=== PATIENT | male | born 1980 | race Caucasian/White ===

== ENCOUNTER 2018-05-09 12:51 | Day surgery (SDC) | payer OTHER ==
[2018-05-09 13:08] VITALS: BMI 27.9
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
[2018-05-09] MEDS ORDERED: AMPICILLIN NA/SULBACTAM NA 3 GM in SODIUM CHLORIDE 100 ML IVPB ONE ×3 (13:46→19:52)
[2018-05-09] MEDS ORDERED: AMPICILLIN NA/SULBACTAM NA 3 GM VIAL ONE (14:35)
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
[2018-05-09 15:26] LABS: BASO % 0.5 % (0-2.0); EOS % 0.4 % (0-4.5); HEMATOCRIT 47.5 % (35.4-49); HEMOGLOBIN 15.7 GM/dl (11.7-16.9); LYMPH % 15.6 % (8-40); MCH 30.5 pg (25.7-33.7); MCHC 33.1 g/dl (32.0-35.9); MEAN CELL VOLUME 92.2 fl (80-96); MEAN PLT VOLUME 9.5 fl (7.5-11.1); MONO % 7.6 % (3.8-10.2); NEUT % 75.9 % (42.8-82.8); PLATELET COUNT 193 K/MM3 (134-434); RBC 5.16 M/mm3 (4.00-5.60); RDW 12.6 % (11.9-15.9); WHITE BLOOD COUNT 11.8 K/mm3 (4.0-10.8)
[2018-05-09 15:31] LABS: ALK PHOS 60 U/L (32-92); ANION GAP 7 MMOL/L (8-16); BILIRUBIN,TOTAL 1.3 mg/dl (0.2-1.0); BLOOD UREA NITROGEN 11 mg/dl (7-18); CHLORIDE 102 mmol/L (98-107); CO2 27 mmol/L (22-28); CREATININE 1.2 mg/dl (0.6-1.3); GLUCOSE,RANDOM 92 mg/dl (74-106); POTASSIUM 4.3 mmol/L (3.5-5.1); SGOT/AST 21 U/L (10-42); SGPT/ALT 18 U/L (10-40); SODIUM 136 mmol/L (136-145)
[2018-05-09 15:41] LABS: INR 1.11 (0.82-1.09); PROTHROMBIN TIME (PATIENT) 12.4 SEC (10.2-13.0)
[2018-05-09] MEDS ORDERED: ONDANSETRON 4 MG/2 ML VIAL IVPUSH PRN ×3 (15:41→19:52)
[2018-05-09] MEDS ORDERED: morphine SULFATE 4 MG/ML VIAL IVPUSH PRN ×2 (15:41→19:52)
[2018-05-09] MEDS ORDERED: LACTATED RINGERS SOLUTION 1,000 ML IV SCH ×3 (15:45→19:52)
--- NOTE | 2018-05-09 15:52 | OP ---
Operative Note - Note: Operative Date: 05/09/18 Pre-Operative Diagnosis: open fracture right fifth proximal phalanx Operation: open reduction and internal fixation of right fifth proximal phalanx fracture, repair of extensor tendon laceration Implants: navarro wire 0.45 X2 Post-Operative Diagnosis: Same as Pre-op Surgeon: Baudilio Vega Anesthesiologist/BUSINESS ETHICS PROFESSOR: Nomi Chang Anesthesia: General, Local (lidocaine 1% and marcaine 0.5% 20ml) Specimens Removed: none Estimated Blood Loss (mls): 25 Instrument used (Debridements only): scalpel and Fluid Volume Replaced (mls): 1,000 Operative Report Dictated: Yes
--- NOTE | 2018-05-09 15:56 | DS ---
Physical Examination Vital Signs: Vital Signs Temperature 98.4 F 05/09/18 12:53 Pulse Rate 84 05/09/18 12:53 Respiratory Rate 20 05/09/18 12:53 Blood Pressure 149/97 05/09/18 12:53 O2 Sat by Pulse Oximetry (%) 100 05/09/18 12:53 Vital Signs Period Temp Pulse Resp BP Sys/Nolen Pulse Ox Last 24 Hr 98.4 F 84 20 149/97 100 Findings/Remarks: stable post operatively, tolerating diet, voiding pain is adequately controlled Constitutional: Yes: Well Nourished, No Distress, Calm Eyes: Yes: Conjunctiva Clear, EOM Intact HENT: Yes: Atraumatic, Normocephalic Neck: Yes: Supple, Trachea Midline Cardiovascular: Yes: Regular Rate and Rhythm, S1, S2 Respiratory: Yes: Regular, CTA Bilaterally Gastrointestinal: Yes: Normal Bowel Sounds, Soft ...Rectal Exam: Yes: Deferred Renal/: Yes: CVA Tenderness - Left, CVA Tenderness - Right Musculoskeletal: No: Muscle Pain, Muscle Weakness Extremities: No: Cool, Cyanosis Edema: Yes Edema: RUE: 1+ Peripheral Pulses WNL: Yes Peripheral Pulses: Left Radial: 2+, Right Radial: 2+, Left Doralis Pedis: 2+, Right Dorsalis Pedis: 2+ Wound/Incision: Yes: Clean/Dry, Well Approximated, Sutures Intact, Dressing Dry and Intact, Other (ulnar gutter splint) Neurological: Yes: Alert, Oriented Psychiatric: Yes: Alert, Oriented Labs: CBC, BMP 05/09/18 14:45 05/09/18 14:45 Discharge Summary Reason For Visit: RIGHT HAND CUT Current Active Problems Fracture of phalanx, finger, open (Acute) Fracture of proximal phalanx of digit of right hand (Acute) Hand pain, right (Acute) Laceration of hand with infection (Acute) Procedures: Principal: open reduction and internal fixation of right small finger proximal phalanx open fracture Hospital Course: admitted for and urgent surgery. uneventful procedure. stable for discharge home on antibiotics with follow-up Condition: Improved - Instructions Diet, Activity, Other Instructions: Postoperative instructions: You had a fixation of right small finger fracture on 05/09/[address] Baudilio Vega of [facility]. Activity: Resume your usual activities gradually, but no heavy exertion or lifting more than 10-15 pounds for 4-6 weeks. Please keep right hand splint clean and dry until followup. ELEVATE YOUR ARM TO KEEP SWELLING DOWN. Eat lightly at first, but advance to your usual diet as tolerated. Pain: For pain, you may use and alternate Tylenol (acetaminophen) 1-2 pills and/ or ibuprofen 200 mg (1-3 pills) every 6 hours each as needed; this means that you can take one OR the other at 3-hour intervals. If you are prescribed a Tylenol/narcotic combination for severe pain, use it instead of plain Tylenol as needed and switch back when your pain starts decreasing. Do not take more than 4000 mg of acetaminophen in a day. Take medications as prescribed or indicated on the labeling. Follow-up: Call Dr. Vega' office at [phone] to make your postop appointment (Thursday in approximately 2 weeks after surgery as advised). Clinic is held in the [facility] on the first floor of [facility]. Call the office if you have: * increasing pain not responsive to pain medication * fever of 101F or higher * unusual or increasing bleeding or drainage from wounds * increasing redness or swelling at wound sites Also, see your primary medical doctor within 1-2 weeks. Referrals: Mo Choi MD [Primary Care Provider] - - Home Medications Comprehensive Discharge Medication List: Ambulatory Orders Cephalexin Monohydrate [Keflex -] 500 mg PO Q6H 7 Days #28 capsule 05/09/18 Oxycodone HCl/Acetaminophen [Percocet 5/325 -] 1 tab PO Q6H #40 tab MDD 5 Sulfamethoxazole/Trimethoprim [Bactrim Ds -] 1 tab PO BID #14 tablet 05/09/18
[2018-05-09] MEDS ORDERED: MIDAZOLAM HCL 2 MG/2 ML SINGLE DOSE VIAL ONE ×2 (16:08)
[2018-05-09] MEDS ORDERED: BUPIVACAINE HCL/PF 0.5% (5MG/ML) 10 ML VIAL ONE (18:04)
[2018-05-09] MEDS ORDERED: LIDOCAINE HCL 1%, 10 MG/ML (20ML VIAL) ONE (18:04)
[2018-05-09] MEDS ORDERED: ceFAZolin SODIUM 1 GM VIAL IVPB ONE (18:16)
[2018-05-09] MEDS ORDERED: LIDOCAINE HCL 1%, 10 MG/ML (20ML VIAL) INF ONE (18:25)
[2018-05-09] MEDS ORDERED: BUPIVACAINE HCL/PF 0.5% (5MG/ML) 10 ML VIAL IJ ONE (18:46)
[2018-05-09] MEDS ORDERED: PROMETHAZINE HCL 25 MG/1 ML VIAL IVPB PRN (19:35)
[2018-05-09] MEDS ORDERED: oxyCODONE HCL 5 MG TABLET PO ONE (21:01)
[2018-05-09 22:16] VITALS: BP 135/67; PULSE 81; TEMP 98.6
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
== END 2018-05-09 22:24 | disposition home or self-care (01) ==
LOC: FER 12:51 → JASU-SURG 16:30 → JSAMEDAYSX 16:32 → J5S 21:18 → JASU-SURG 22:24
PROC: 0LQ70ZZ Repair Right Hand Tendon, Open Approach (ICD-10-PCS; 2018-05-09)
PROC: 0PST04Z Reposition Right Finger Phalanx with Internal Fixation Device, Open Approach (ICD-10-PCS; principal; 2018-05-09 18:00)
DX: S62.616B Displaced fracture of proximal phalanx of right little finger, initial encounter for open fracture (principal); S66.326A Laceration of extensor muscle, fascia and tendon of right little finger at wrist and hand level, initial encounter; W22.8XXA Striking against or struck by other objects, initial encounter; Y93.89 Activity, other specified; Y92.9 Unspecified place or not applicable
CPT/HCPCS: 36415; 73130-TC-RT-FY; 80053; 85025; 85610; 85730; 86850; 86900; 86901; 94010; 94760; 99283-25

== ENCOUNTER 2018-06-14 10:46 | Day surgery (SDC) | payer OTHER ==
[2018-06-14 11:09] VITALS: BMI 29.1
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
--- NOTE | 2018-06-14 12:12 | HP ---
Admitting History and Physical - Admission Chief Complaint: right and retained hardware History of Present Illness: 37 yo RHD male s/p ORIF of right small finger proximal phalanx presented to ED with painful fixation hardware that we were unable to remove locally in the clinic this past thursday. he reports hardware feels like its migrated. Exam from last with a shows fracture to proximal phalange of right little finger. Fracture was surgically repaired 5 days ago and patient presented to surgeon office for hardware removal but could not be removed outpatient and patient is to be sent to or for removal of hardware. Patient denies any symptoms, we were called to assess. History Source: Patient, Medical Record Limitations to Obtaining History: No Limitations - Smoking History Smoking history: Current some day smoker Have you smoked in the past 12 months: Yes Aproximately how many cigarettes per day: 3 - Alcohol/Substance Use Hx Alcohol Use: No Home Medications - Allergies Allergies/Adverse Reactions: Allergies Allergy/AdvReac Type Severity Reaction Status Date / Time No Known Allergies Allergy Verified 06/14/18 11:03 - Home Medications Home Medications: Ambulatory Orders Oxycodone HCl/Acetaminophen [Percocet 5/325 -] 1 tab PO Q6H #28 tab MDD 5 Review of Systems - Review of Systems Constitutional: denies: Chills, Fever Eyes: denies: Blind Spots, Blurred Vision, Recent Change in Vision HENT: denies: Difficult Swallowing, Throat Pain Neck: denies: Pain on Movement, Swollen Glands Cardiovascular: denies: Chest Pain, Palpitations Respiratory: denies: Cough, SOB Gastrointestinal: denies: Abdominal Pain, Constipation, Diarrhea Genitourinary: denies: Discharge, Dysuria Breasts: reports: No Symptoms Reported. denies: Pain Musculoskeletal: denies: Muscle Cramps, Muscle Weakness Integumentary: denies: Pallor, Rash Neurological: denies: Seizure, Syncope Endocrine: denies: Unexplained Weight Gain, Unexplained Weight Loss Hematology/Lymphatic: denies: Easily Bruised, Excessive Bleeding Psychiatric: denies: Anxiety, Depression Physical Examination Vital Signs: Vital Signs Temperature 98.2 F 06/14/18 11:04 Pulse Rate 79 06/14/18 11:04 Respiratory Rate 16 06/14/18 11:04 Blood Pressure 114/75 06/14/18 11:04 O2 Sat by Pulse Oximetry (%) 99 06/14/18 11:04 Constitutional: Yes: Well Nourished, No Distress, Calm Eyes: Yes: Conjunctiva Clear, EOM Intact HENT: Yes: Atraumatic, Normocephalic Neck: Yes: Supple, Trachea Midline Cardiovascular: Yes: Regular Rate and Rhythm, S1, S2 Respiratory: Yes: Regular, CTA Bilaterally Gastrointestinal: Yes: Normal Bowel Sounds, Soft. No: Tenderness ...Rectal Exam: Yes: Deferred Renal/: No: CVA Tenderness - Left, CVA Tenderness - Right Breast(s): No: Mass, Skin Changes Musculoskeletal: Yes: Other (right smal finger healing well). No: Muscle Pain, Muscle Weakness Edema: No Peripheral Pulses WNL: Yes Peripheral Pulses: Left Radial: 2+, Right Radial: 2+, Left Doralis Pedis: 2+, Right Dorsalis Pedis: 2+, Left Femoral: 2+, Right Femoral: 2+ Integumentary: No: Jaundice, Rash Wound/Incision: Yes: Clean/Dry, Well Approximated, Sutures Removed. No: Draining, Reddened, Bleeding Neurological: Yes: Alert, Oriented Psychiatric: Yes: Alert, Oriented Problem List - Problems (1) Metal bone fixation hardware in place Assessment/Plan: 37 yo RHD male with right small finger with fixation hardware (k-wire) now symptomatic NPO and IVF hydration IV antibiotics Discussed with patient risks, benefits and alternatives revision right small finger hardware, including but not limited to bleeding, infection, injury to adjacent structures, need for further procedures, ; alternatives include antibiotics, delayed or no surgery - risks of this include failure of nonoperative therapy, sepsis, recurrence, . Patient desires to proceed with operation - will take to OR for above. Informed consent signed for same. Code(s): Z96.7 - PRESENCE OF OTHER BONE AND TENDON IMPLANTS (2) Fracture of phalanx, finger, open Code(s): S62.609B - FRACTURE OF UNSP PHALANX OF UNSP FINGER, INIT FOR OPN FX Qualifiers: Encounter type: subsequent encounter Finger: little finger Phalanx: proximal Fracture alignment: displaced Laterality: right Fracture healing : with routine healing Qualified Code(s): S62.616D - Displaced fracture of proximal phalanx of right little finger, subsequent encounter for fracture with routine healing (3) Fracture of proximal phalanx of digit of right hand Code(s): S62.619A - DISP FX OF PROXIMAL PHALANX OF UNSP FINGER, INIT FOR CLOS FX Qualifiers: Encounter type: subsequent encounter Fracture type: closed Fracture healing: with routine healing Qualified Code(s): S62.619D - Displaced fracture of proximal phalanx of unspecified finger, subsequent encounter for fracture with routine healing (4) Hand pain, right Code(s): M79.641 - PAIN IN RIGHT HAND (5) Laceration of hand with infection Code(s): S61.419A - LACERATION WITHOUT FOREIGN BODY OF UNSP HAND, INIT ENCNTR; L08.9 - LOCAL INFECTION OF THE SKIN AND SUBCUTANEOUS TISSUE, UNSP Qualifiers: Encounter type: subsequent encounter Laterality: right Qualified Code(s) : S61.411D - Laceration without foreign body of right hand, subsequent encounter ; L08.9 - Local infection of the skin and subcutaneous tissue, unspecified
[2018-06-14] MEDS ORDERED: ONDANSETRON 4 MG/2 ML VIAL IVPUSH PRN (12:19)
--- NOTE | 2018-06-14 12:25 | OP ---
Operative Note - Note: Operative Date: 06/14/18 Pre-Operative Diagnosis: painful fixation hardware right small finger proximal phalnax Operation: removal of hardware right small finger Findings: single kirshner wire inproximal phalanx, pre and post xray recorded complete explantation Post-Operative Diagnosis: Same as Pre-op Surgeon: Baudilio Vega Anesthesiologist/PHYSICAL LABORATORY ASSISTANT: Moe Layne Anesthesia: Local, MAC Specimens Removed: k wire Estimated Blood Loss (mls): 2 Fluid Volume Replaced (mls): 300
[2018-06-14] MEDS ORDERED: LACTATED RINGERS SOLUTION 1,000 ML IV SCH (12:30)
--- NOTE | 2018-06-14 12:31 | DS ---
Physical Examination Vital Signs: Vital Signs Temperature 98.2 F 06/14/18 11:04 Pulse Rate 79 06/14/18 11:04 Respiratory Rate 16 06/14/18 11:04 Blood Pressure 114/75 06/14/18 11:04 O2 Sat by Pulse Oximetry (%) 99 06/14/18 11:04 Findings/Remarks: stable post operatively. tolerating diet stable for discharge home Constitutional: Yes: Well Nourished, No Distress, Calm Eyes: Yes: Conjunctiva Clear, EOM Intact HENT: Yes: Atraumatic, Normocephalic Neck: Yes: Supple, Trachea Midline Cardiovascular: Yes: Regular Rate and Rhythm, S1, S2 Respiratory: Yes: Regular, CTA Bilaterally Gastrointestinal: Yes: Normal Bowel Sounds, Soft. No: Tenderness ...Rectal Exam: Yes: Deferred Renal/: No: CVA Tenderness - Left, CVA Tenderness - Right Musculoskeletal: No: Muscle Pain, Muscle Weakness Extremities: Yes: Other. No: Cool, Cyanosis Wound/Incision: Yes: Clean/Dry, Well Approximated, Dressing Dry and Intact ( right hand) Neurological: Yes: Alert, Oriented Psychiatric: Yes: Alert, Oriented Discharge Summary Reason For Visit: INJURY TO HAND Current Active Problems Fracture of proximal phalanx of digit of right hand (Acute) Metal bone fixation hardware in place (Acute) Procedures: Principal: removal of hardware right small finger Hospital Course: admitted for ambulatory surgery. uneventful procedure. stable for discharge home. Condition: Good - Instructions Diet, Activity, Other Instructions: Postoperative instructions: You had a removal of hardware right small finger on 06/14/[address] Baudilio Vega of [facility]. Activity: Resume your usual activities gradually, but no heavy exertion or lifting more than 10-15 pounds for 4-6 weeks. Keep dressing clean and dry until followup appointment. Eat lightly at first, but advance to your usual diet as tolerated. Pain: For pain, you may use and alternate Tylenol (acetaminophen) 1-2 pills and/ or ibuprofen 200 mg (1-3 pills) every 6 hours each as needed; this means that you can take one OR the other at 3-hour intervals. If you are prescribed a Tylenol/narcotic combination for severe pain, use it instead of plain Tylenol as needed and switch back when your pain starts decreasing. Do not take more than 4000 mg of acetaminophen in a day. Take medications as prescribed or indicated on the labeling. Follow-up: Call Dr. Vega' office at [phone] to make your postop appointment (Thursday 2 weeks after surgery as advised). Clinic is held in the [facility] on the first floor of [facility]. Call the office if you have: * increasing pain not responsive to pain medication * fever of 101F or higher * unusual or increasing bleeding or drainage from wounds * increasing redness or swelling at wound sites Also, see your primary medical doctor within 1-2 week Referrals: Mo Choi MD [Primary Care Provider] - Disposition: HOME - Home Medications Comprehensive Discharge Medication List: Ambulatory Orders Oxycodone HCl/Acetaminophen [Percocet 5/325 -] 1 tab PO Q6H #28 tab MDD 5 Oxycodone HCl/Acetaminophen [Oxycodone-Acetaminophen 10-325] 1 each PO Q6H #60 tablet MDD 4 06/14/18
[2018-06-14] MEDS ORDERED: ceFAZolin SODIUM 1 GM VIAL IVPB ONE (13:34)
[2018-06-14] MEDS ORDERED: ceFAZolin SODIUM 1 GM VIAL ONE (13:45)
[2018-06-14] MEDS ORDERED: BUPIVACAINE HCL/PF (5 MG/ML) 30 ML VIAL IJ ONE (14:00)
[2018-06-14] MEDS ORDERED: LIDOCAINE HCL 1%, 10 MG/ML (20ML VIAL) ONE (15:17)
[2018-06-14 15:51] VITALS: TEMP 97.8
[2018-06-14 17:08] VITALS: BP 115/66; PULSE 80
--- NOTE | 2018-06-17 10:19 | PATH ---
Surgical Pathology Report Patient Name: DAFNE HERNANDEZ Med. Rec. #: [id number] /Age/Gender: 1980 (Age: 37) / M Account: [id number] Location: AMBULATORY SURG Taken: 06/14/2018 Received: 06/15/2018 Reported: 06/17/2018 Physicians: Sammy Gustafson M.D. Specimen(s) Received K-WIRE Clinical History Status post ORIF right small finger Final Diagnosis K WIRE, REMOVAL: SURGICAL HARDWARE. MACROSCOPIC DIAGNOSIS. Electronically Signed Marycruz Alvarez M.D. Gross Description Received fresh labeled "K wire," is a 4 cm in length x 0.1 cm in diameter [place] metallic pin. No soft tissue is present. No sections are submitted, gross only. 06/16/201806/16/2018
--- NOTE | 2018-07-05 20:30 | OP ---
DATE OF OPERATION: 06/14/2018 PREOPERATIVE DIAGNOSIS: Painful fixation of hardware, right small finger proximal phalanx. POSTOPERATIVE DIAGNOSIS: Painful fixation of hardware, right small finger proximal phalanx. PROCEDURE: Removal of hardware, right small finger, single Devi wire in proximal phalanx. Pre and post x-ray recorded completed explantation. ATTENDING SURGEON: Baudilio Vega MD ASSEMBLER TRACTOR: OLGA Moreau-LILIANE ANESTHESIA TYPE: Local and MAC. Local consisted of 1% lidocaine and 0.5% Marcaine, a total of 10 mL was given in digital block fashion. SPECIMEN REMOVED: Devi wire, 035 x1. ESTIMATED BLOOD LOSS: 2 mL. IV FLUID ADMINISTERED: 300 mL. INDICATION: Patient is presenting after hardware fixation of the right small finger proximal phalanx with hardware that has receded and also become painful. He was counseled regarding risks, benefits, and alternatives of surgical explantation, signed informed consent, and was taken for the procedure. PROCEDURE: The patient was brought to the operating room, placed in supine position on the operating table with the right arm extended 90 degrees perpendicular to the body's midline axis at the shoulder. The right hand was prepped and draped into a standard surgical field. The lower extremities had SCDs placed. He was induced with general anesthesia, endotracheally intubated, at which point we began first with a portable x-ray, portable Zeiss scan with a mini C-arm to confirm the presence of a radial-based Devi wire placed obliquely through and through. The fracture appeared to be healed at this point. A hypodermic needle was used, size 22, percutaneously after a ring block was in place to isolate and jason the distal aspect of the Devi wire, at which point a small sandy incision was made with a 15 blade scalpel. This incision was explored and the Devi wire was identified and then, with gentle traction, removed from the bone itself. With both structures removed, both the needle and the Devi wire removed, the Devi wire was sent for final pathologic diagnosis. The wound was irrigated and then closed with 4-0 nylon in interrupted fashion. The post Zeiss scan recording revealed no additional hardware was present. The patient was then placed into a soft sterile dressing, returned to recovery room in stable condition, having tolerated the procedure well. MD ALLEN Mclean/[id number]
== END 2018-06-14 17:20 | disposition left against medical advice (07) ==
LOC: JER 10:46 → JASUSAT 12:15
PROC: 0RP Upper Joints, Removal (ICD-10-PCS; principal; 2018-06-14 10:30)
DX: T84.84XA Pain due to internal orthopedic prosthetic devices, implants and grafts, initial encounter (principal)
CPT/HCPCS: 76000-TC-FY; 88300-TC; 94760; 99283-25

== ENCOUNTER 2018-09-07 11:40 | Emergency (ER) | payer OTHER ==
[2018-09-07 12:20] VITALS: BP 137/84; PULSE 85; TEMP 98.6; BMI 27.9
--- NOTE | 2018-09-07 13:35 | PDOC ---
History of Present Illness - General Chief Complaint: Revisit,Burn Stated Complaint: SENT BY PCP Time Seen by Provider: 09/07/18 13:27 History Source: Patient Exam Limitations: No Limitations - History of Present Illness Initial Comments: 09/07/18 13:48 Patient is a 38-year-old male who presents to the ER today for an antibiotic injection. Patient states he was seen by Dr. Alfredo who diagnosed him with gonorrhea. He is here for ceftriaxone shot. Admits to dysuria, however patient had recent negative UA. Denies fevers, chills, painful urination, frequency and urgency. Past History - Travel Traveled outside of the country in the last 30 days: No Close contact w/someone who was outside of country & ill: No - Past Medical History Allergies/Adverse Reactions: Allergies Allergy/AdvReac Type Severity Reaction Status Date / Time No Known Allergies Allergy Verified 09/07/18 12:18 Home Medications: Ambulatory Orders Oxycodone HCl/Acetaminophen [Percocet 5/325 -] 1 tab PO Q6H #28 tab MDD 5 Oxycodone HCl/Acetaminophen [Oxycodone-Acetaminophen 10-325] 1 each PO Q6H #60 tablet MDD 4 06/14/18 COPD: No - Immunization History Immunization Up to Date: Yes - Suicide/Smoking/Psychosocial Hx Smoking History: Current some day smoker Have you smoked in the past 12 months: Yes Number of Cigarettes Smoked Daily: 3 Information on smoking cessation initiated: Yes 'Breaking Loose' booklet given: 05/09/18 Hx Alcohol Use: No Drug/Substance Use Hx: No Substance Use Type: None Review of Systems - Review of Systems Able to Perform ROS?: Yes Comments:: 09/07/18 13:34 CONSTITUTIONAL: Absent: fever, chills, diaphoresis, generalized weakness, malaise, loss of appetite HEENT: Absent: rhinorrhea, nasal congestion, throat pain, throat swelling, difficulty swallowing, mouth swelling, ear pain, eye pain, visual Changes CARDIOVASCULAR: Absent: chest pain, loss of consciousness, palpitations, irregular heart rate, peripheral edema RESPIRATORY: Absent: cough, shortness of breath, dyspnea with exertion, orthopnea, wheezing, stridor, hemoptysis GASTROINTESTINAL: Absent: abdominal pain, abdominal distension, nausea, vomiting, diarrhea, constipation, melena, hematochezia GENITOURINARY: Present: dysuria Absent: frequency, urgency, hesitancy, hematuria, flank pain, genital pain MUSCULOSKELETAL: Absent: myalgia, arthralgia, joint swelling SKIN: Absent: rash, itching, pallor HEMATOLOGIC/IMMUNOLOGIC: Absent: easy bleeding, easy bruising, lymphadenopathy, frequent infections ENDOCRINE: Absent: unexplained weight gain, unexplained weight loss, heat intolerance, cold intolerance NEUROLOGIC: Absent: headache, focal weakness or paresthesias, dizziness, unsteady gait, seizure, mental status changes, bladder or bowel incontinence PSYCHIATRIC: Absent: anxiety, depression, suicidal or homicidal ideation, hallucinations. Is the patient limited Mohawk proficient: No *Physical Exam - Vital Signs Last Vital Signs Temp Pulse Resp BP Pulse Ox 98.6 F 85 18 137/84 99 09/07/18 12:18 09/07/18 12:18 09/07/18 12:18 09/07/18 12:18 09/07/18 12:18 - Physical Exam Comments: 09/07/18 13:34 GENERAL: The patient is awake, alert, and fully oriented, in no acute distress. HEAD: Normal with no signs of trauma. EYES: Pupils equal, round and reactive to light, extraocular movements intact, sclera anicteric, conjunctiva clear. EXTREMITIES: Normal range of motion, no edema. NEUROLOGICAL: Normal speech, normal gait. PSYCH: Normal mood, normal affect. SKIN: Warm, Dry, normal turgor, no rashes or lesions noted. Moderate Sedation - Procedure Monitoring Vital Signs: Procedure Monitoring Vital Signs Temperature 98.6 F 09/07/18 12:18 Pulse Rate 85 09/07/18 12:18 Respiratory Rate 18 09/07/18 12:18 Blood Pressure 137/84 09/07/18 12:18 O2 Sat by Pulse Oximetry (%) 99 09/07/18 12:18 Medical Decision Making - Medical Decision Making 09/07/18 13:49 Patient presents to the ER for ceftriaxone injection after being diagnosed with gonorrhea. Ceftriaxone 250 milligrams IM given in the ED. Patient does not want urine testing at this time. Discharge home I discussed the physical exam findings, ancillary test results and final diagnoses with the patient. I answered all of the patient's questions. The patient was satisfied with the care received and felt comfortable with the discharge plan and treatment plan. The Patient agrees to follow up with the primary care physician/specialist within 24-72 hours. Return precautions were given. *DC/Admit/Observation/Transfer Diagnosis at time of Disposition: STD (sexually transmitted disease) - Discharge Dispostion Disposition: HOME Condition at time of disposition: Stable Decision to Admit order: No - Referrals Referrals: Mo Choi MD [Primary Care Provider] - - Patient Instructions Printed Discharge Instructions: DI for Gonorrhea Additional Instructions: You were treated for your STD today with a Ceftriaxone injection Inform all partners you are sexually active with Use protection Follow up with your primary care doctor. Return to the ED for any new or worsening symptoms - Post Discharge Activity Forms/Work/School Notes: Back to Work
== END 2018-09-07 13:53 | disposition home or self-care (01) ==
LOC: JERFT 11:40
DX: A54.89 Other gonococcal infections (principal)
CPT/HCPCS: 99281-25